=== PATIENT | female | born 1990 | race Asian ===

== ENCOUNTER 2021-11-19 09:32 | Emergency (ER) | payer OTHER ==
[~2021-11-19] VITALS: Ht 149.9 cm; Wt 53.5 kg
== END 2021-11-19 14:15 | disposition home or self-care (01) ==
LOC: ED 09:32
DX: H81.399 Other peripheral vertigo, unspecified ear (principal)
CPT/HCPCS: 36415; 80053; 84703; 85025; 85060; 96361; 96374; 96375; 99284-25; J1200; J2765; J7030